=== PATIENT | female | born 1985 | race Caucasian/White ===

== ENCOUNTER 2022-02-22 11:29 | Outpatient (CLI) | payer OTHER, SELFPAY ==
[2022-02-22 11:53] LABS: Basophils Absolute Auto 0.1 K/mm3 (0.0-0.1); Basophils Percent Auto 0.9 % (0.2-1.2); Eosinophils Absolute Auto 0.4 K/mm3 (0-0.3); Eosinophils Percent Auto 3.2 % (0-4.4); Hematocrit 39.8 % (37.0-47.0); Hemoglobin 12.5 g/dL (12.0-15.0); Immature Granulocyte Absolute 0.08 K/mm3 (0.00-0.031); Immature Granulocyte Percent A 0.7 % (0-0.5); Lymphocytes Percent Auto 23.1 % (18.3-44.2); Mean Corpuscular HGB Conc 31.4 g/dl (32-36); Mean Corpuscular Hemoglobin 27.4 pg (26-34); Mean Corpuscular Volume 87.1 fl (80-100); Monocytes Absolute Auto 0.7 K/mm3 (0.1-0.6); Monocytes Percent Auto 6.6 % (2.6-8.5); Neutrophils Absolute Auto 7.1 K/mm3 (1.3-6.7); Neutrophils Percent Auto 65.5 % (45.5-73.1); Platelet Count Result 335 k/mm3 (150-375); Red Blood Count 4.57 M/mm3 (4.2-5.4); White Blood Count 10.8 K/mm3 (4.5-10.0)
[2022-02-22 12:05] LABS: Alanine Aminotransferase 58 U/L (4-35); Albumin Level 4.5 g/dL (3.5-5.1); Alkaline Phosphatase 75 U/L (38-126); Anion Gap 8 mmol/L (8-16); Aspartate Amino Transferase 65 U/L (14-36); Bilirubin,Total 0.7 mg/dL (0.2-1.3); Blood Urea Nitrogen 12 mg/dL (7-17); Calcium 9.2 mg/dL (8.4-10.2); Carbon Dioxide 29 mmol/L (22-30); Chloride 98 mmol/L (98-107); Cholesterol 254 mg/dL (0-200); Estimated Glomerular Filt Rate > 60; Glucose 107 mg/dL (65-110); HDL Direct 43 mg/dL; Magnesium 1.9 mg/dL (1.6-2.3); Potassium 3.9 mmol/L (3.4-5.0); Sodium 135 mmol/L (137-145); Triglycerides 251 mg/dL (<150)
[2022-02-22 12:09] LABS: Hemoglobin A1C 6.7 % (<5.7)
[2022-02-22 12:17] LABS: LDL Cholesterol Direct 157 mg/dL
== END 2022-02-22 11:30 | disposition home or self-care (01) ==
LOC: ANHLAB 11:38
PROVIDERS: PCP Physician Assistant; Visit Provider Physician Assistant
DX: M25.531 Pain in right wrist (principal); F33.0 Major depressive disorder, recurrent, mild; F41.9 Anxiety disorder, unspecified
CPT/HCPCS: 36415; 80053; 80061; 82607; 83036; 83735; 84439; 84443; 85025

== ENCOUNTER 2022-04-04 09:09 | Outpatient (CLI) | payer OTHER, SELFPAY ==
[2022-04-04 09:52] LABS: Alanine Aminotransferase 70 U/L (6-35); Albumin Level 4.7 g/dL (3.5-5.1); Alkaline Phosphatase 71 U/L (38-126); Anion Gap 7 mmol/L (8-16); Aspartate Amino Transferase 60 U/L (14-36); Bilirubin,Total 0.6 mg/dL (0.2-1.3); Blood Urea Nitrogen 12 mg/dL (7-17); Calcium 9.2 mg/dL (8.4-10.2); Carbon Dioxide 30 mmol/L (22-30); Chloride 100 mmol/L (98-107); Estimated Glomerular Filt Rate > 60; Glucose 136 mg/dL (65-110); Potassium 4.4 mmol/L (3.4-5.0); Sodium 137 mmol/L (137-145)
== END 2022-04-04 09:10 | disposition home or self-care (01) ==
LOC: ANHLAB 09:14
PROVIDERS: PCP Physician Assistant; Visit Provider Physician Assistant
DX: E11.9 Type 2 diabetes mellitus without complications (principal)
CPT/HCPCS: 36415; 80053

== ENCOUNTER 2022-05-03 10:21 | Outpatient (CLI) | payer OTHER, SELFPAY ==
[2022-05-03 13:02] LABS: Alanine Aminotransferase 75 U/L (6-35); Albumin Level 4.4 g/dL (3.5-5.1); Alkaline Phosphatase 66 U/L (38-126); Anion Gap 8 mmol/L (8-16); Aspartate Amino Transferase 64 U/L (14-36); Bilirubin,Total 0.6 mg/dL (0.2-1.3); Blood Urea Nitrogen 13 mg/dL (7-17); Calcium 9.1 mg/dL (8.4-10.2); Carbon Dioxide 30 mmol/L (22-30); Chloride 98 mmol/L (98-107); Estimated Glomerular Filt Rate > 60; Glucose 138 mg/dL (65-110); Potassium 4.4 mmol/L (3.4-5.0); Sodium 136 mmol/L (137-145)
[2022-05-03 14:32] LABS: Hemoglobin A1C 7.9 % (<5.7)
== END 2022-05-03 10:22 | disposition home or self-care (01) ==
LOC: ANHLAB 10:23
PROVIDERS: PCP Physician Assistant; Visit Provider Physician Assistant
DX: E11.69 Type 2 diabetes mellitus with other specified complication (principal); E78.5 Hyperlipidemia, unspecified; R79.89 Other specified abnormal findings of blood chemistry; E53.8 Deficiency of other specified B group vitamins
CPT/HCPCS: 36415; 80053; 82607; 83036

== ENCOUNTER 2022-05-23 07:54 | Outpatient (CLI) | payer OTHER, SELFPAY ==
--- NOTE | ~2022-05-23 | US_ITS ---
EXAMINATION: US right upper quadrant DATE: 05/23/2022 08:40 INDICATION: Abnormal liver function tests. TECHNIQUE: Multiple grayscale and Doppler ultrasound images of the abdomen were obtained. COMPARISON: None FINDINGS: The visualized portions of the head and body of the pancreas are normal. There is diffuse h epatic steatosis. There is normal flow in main portal vein. The gallbladder is normal in size and con tains gallstones. No gallbladder wall thickening or sonographic Engel sign. The common duct is ezra l and measures 6 mm. IMPRESSION: 1. Cholelithiasis. No evidence of acute cholecystitis. 2. Diffuse hepatic steatosis. Reviewed, dictated and finalized at location A.
== END 2022-05-23 07:55 | disposition home or self-care (01) ==
PROVIDERS: PCP Physician Assistant; Visit Provider Physician Assistant
DX: R79.89 Other specified abnormal findings of blood chemistry (principal); K80.20 Calculus of gallbladder without cholecystitis without obstruction; K76.0 Fatty (change of) liver, not elsewhere classified
CPT/HCPCS: 76705

== ENCOUNTER 2022-06-03 12:41 | Emergency (ER) | payer OTHER, SELFPAY ==
[2022-06-03 12:51] VITALS: BP 123/79; PULSE 111; RESP 18; TEMP 36.6; O2SAT 98
--- NOTE | 2022-06-03 13:06 | ED.UPPEXIN ---
HPI - Extremity Injury (Upper) General Chief Complaint: Extremity Injury, Upper Stated Complaint: lt wrist pain Time Seen by Provider: 06/03/22 12:57 Source: patient Mode of arrival: ambulatory Limitations: no limitations History of Present Illness HPI narrative: Patient presents today with a 3-week history of left wrist pain that has been worsening since onset. Denies any injury or trauma. Denies any numbness or tingling in the arm or hand. She currently rates her pain 2/10 that she describes as a constant ache, at rest. Pain increases with grasping or some movements. She has been taking Tylenol and ibuprofen with mild relief. Related Data Home Medications Medication Instructions Recorded Confirmed Unknown Iud 06/03/22 escitalopram oxalate 10 mg tablet 10 mg DAILY 06/03/22 06/03/22 levothyroxine 75 mcg tablet 75 mcg DAILY 06/03/22 06/03/22 (Euthyrox) lisinopril 20 1 tablet DAILY 06/03/22 06/03/22 mg-hydrochlorothiazide 25 mg tablet metformin 500 mg tablet,extended 500 mg PO DAILY 06/03/22 06/03/22 release 24 hr Allergies Allergy/AdvReac Type Severity Reaction Status Date / Time adhesive tape Allergy Unknown Verified 06/03/22 12:57 Review of Systems Review of Systems: CONSTITUTIONAL: Denies body aches, fever, chills, or sweats. EYES: Denies visual changes, redness, or discharge. ENT: Denies rhinorrhea, congestion, sore throat, or otalgia. CARDIOVASCULAR: Denies chest pain, palpitations, or edema. RESPIRATORY: Denies cough or dyspnea. GASTROINTESTINAL: Denies abdominal pain, nausea, vomiting, or diarrhea. GENITOURINARY: Denies dysuria or hematuria. SKIN: Denies rash, itching, or wounds. MUSCULOSKELETAL: Denies back pain, or myalgia.+ Left wrist pain NEUROLOGIC: Denies headache, numbness, tingling, or weakness. PSYCH: Denies depression or anxiety. [facility] Past Medical History Medical History (Updated 06/03/22 @ 13:11 by Daysi King, [employer], ) Diabetes Hypothyroidism Comments At time of signature, I have reviewed and agree with nursing past medical, surgical, social and family history unless otherwise noted. Please see nursing chart for further information. There is no relevant family history pertinent to the presenting complaint Exam Narrative: GENERAL: Well-appearing, well-nourished, and in no acute distress. HEAD: Normocephalic, atraumatic. EYES: EOMI. No redness or drainage. Conjunctivae normal. ENT: Mucous membranes pink and moist. NECK: Normal AROM. CHEST: No respiratory distress. EXTREMITIES: Left wrist: Soft tissue tenderness to the distal radius that extends slightly up the forearm No bony tenderness. No edema, ecchymosis, or erythema noted. Distal sensation intact. Capillary refill normal. Radial pulse normal. Full range of motion of the wrist and all fingers. Pain with full flexion and extension, full pronation and supination. 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 SKIN: Warm, dry, no rash. Capillary refill normal. Normal skin turgor. NEURO: No focal deficits. Alert and oriented x3. Gait steady. PSYCH: Normal affect. No signs of depression or anxiety. Course Course Level of Care: Express Care Visit Vital Signs Vital signs: Vital Signs Temperature 97.9 F 06/03/22 12:51 Pulse Rate 111 H 06/03/22 12:51 Respiratory Rate 18 06/03/22 12:51 Blood Pressure 123/79 06/03/22 12:51 Pulse Oximetry 98 06/03/22 12:51 Oxygen Delivery Room Air 06/03/22 12:51 Temperature 97.9 F 06/03/22 12:51 Pulse Rate 111 H 06/03/22 12:51 Respiratory Rate 18 06/03/22 12:51 Blood Pressure 123/79 06/03/22 12:51 Pulse Oximetry 98 06/03/22 12:51 Oxygen Delivery Room Air 06/03/22 12:51 Reviewed. Pt has been instructed to follow up with her PCP regarding her elevated blood pressure today. MDM - Extremity Injury (Upper) Differential Diagnosis Differential diagnosis: Likely sprain and strain of wrist and other (Tendinitis) Critical Care Time Critical Care Time Cri
== END 2022-06-03 13:14 | disposition home or self-care (01) ==
PROVIDERS: Emergency Provider Nurse Practitioner; PCP Physician Assistant
DX: M77.8 Other enthesopathies, not elsewhere classified (principal); E11.9 Type 2 diabetes mellitus without complications; E03.9 Hypothyroidism, unspecified
CPT/HCPCS: 99213; G0463

== ENCOUNTER 2022-07-12 11:04 | Outpatient (CLI) | payer OTHER, SELFPAY ==
[2022-07-12 11:48] LABS: Basophils Absolute Auto 0.1 K/mm3 (0.0-0.1); Basophils Percent Auto 0.6 % (0.2-1.2); Eosinophils Absolute Auto 0.3 K/mm3 (0-0.3); Eosinophils Percent Auto 2.3 % (0-4.4); Hematocrit 39.1 % (37.0-47.0); Hemoglobin 12.5 g/dL (12.0-15.0); Immature Granulocyte Absolute 0.07 K/mm3 (0.00-0.031); Immature Granulocyte Percent A 0.6 % (0-0.5); Lymphocytes Absolute Auto 2.97 K/mm3 (0.9-3.2); Lymphocytes Percent Auto 26.8 % (18.3-44.2); Mean Corpuscular Hemoglobin 27.7 pg (26-34); Mean Corpuscular Volume 86.5 fl (80-100); Mean Platelet Volume 10.5 fl (7.4-10.4); Monocytes Absolute Auto 0.7 K/mm3 (0.1-0.6); Monocytes Percent Auto 6.3 % (2.6-8.5); Neutrophils Percent Auto 63.4 % (45.5-73.1); Platelet Count Result 347 k/mm3 (150-375); Red Blood Count 4.52 M/mm3 (4.2-5.4); Red Cell Distribution Width 14.3 % (11.5-14.5); White Blood Count 11.1 K/mm3 (4.5-10.0)
[2022-07-12 11:59] LABS: Alanine Aminotransferase 80 U/L (6-35); Albumin Level 4.4 g/dL (3.5-5.1); Alkaline Phosphatase 76 U/L (38-126); Anion Gap 8 mmol/L (8-16); Aspartate Amino Transferase 77 U/L (14-36); Bilirubin,Total 0.7 mg/dL (0.2-1.3); Blood Urea Nitrogen 12 mg/dL (7-17); Calcium 9.6 mg/dL (8.4-10.2); Carbon Dioxide 31 mmol/L (22-30); Chloride 96 mmol/L (98-107); Cholesterol 237 mg/dL (0-200); Estimated Glomerular Filt Rate > 60; Glucose 174 mg/dL (65-110); HDL Direct 37 mg/dL; Magnesium 1.6 mg/dL (1.6-2.3); Potassium 4.2 mmol/L (3.4-5.0); Sodium 135 mmol/L (137-145); Triglycerides 246 mg/dL (<150)
[2022-07-12 12:10] LABS: LDL Cholesterol Direct 172 mg/dL
[2022-07-12 12:50] LABS: Free T4 Free Thyroxine 1.49 ng/mL (0.78-2.19)
[2022-07-12 13:02] LABS: Hemoglobin A1C 9.2 % (<5.7)
== END 2022-07-12 11:05 | disposition home or self-care (01) ==
PROVIDERS: PCP Physician Assistant; Visit Provider Physician Assistant
DX: E53.8 Deficiency of other specified B group vitamins (principal); R79.89 Other specified abnormal findings of blood chemistry; E11.69 Type 2 diabetes mellitus with other specified complication; E78.5 Hyperlipidemia, unspecified; F33.0 Major depressive disorder, recurrent, mild; F41.9 Anxiety disorder, unspecified; M25.531 Pain in right wrist; E03.9 Hypothyroidism, unspecified; E78.00 Pure hypercholesterolemia, unspecified
CPT/HCPCS: 36415; 80053; 80061; 82607; 83036; 83735; 84439; 84443; 85025

== ENCOUNTER 2023-05-16 01:38 | Day surgery (SDC) | payer OTHER, SELFPAY ==
[2023-05-12 14:45] VITALS: BMI 52.4
--- NOTE | 2023-05-12 15:01 | PC.NURSE ---
Report to the Outpatient Waiting Room, entrance under the green pavilion located off [facility], at time 6:00 on date 05/16/23. Planned Procedure Time: 7:30. Time changes happen often and if your time is changed the preop area will call you the afternoon before. - You and your visitor will be asked to self-screen and do not enter if you have any COVID symptoms. - A mask is optional within the hospital at this time. Patients may have clear liquids (water, carbonated beverages, clear teas, apple juice) until 3 hours prior to surgery with a maximum of 20 ounces. - No food from midnight until time of surgery Take the following medications with a SIP of water the morning of surgery: LEVOTHYROXINE DO NOT STOP ANY OF YOUR OTHER PRESCRIPTION MEDICATIONS PRIOR TO SURGERY ?EXCEPT THE FOLLOWING Medications to discontinue per physician: N/A Date to take last dose: N/A Please no make-up, nail liberian, hairspray, perfume, deodorant, or body powder the day of surgery. No jewelry (including any body piercings) or valuables the day of surgery, leave them at home. Please take a shower or bath the night before, or the morning of, surgery with an antibacterial soap. Wear comfortable, loose fitting clothing. - Jewelry must be removed prior to entering the operating room. Rings and piercings that are not removed may be cut off. - The hospital will not accept responsibility for valuables. - Please leave all valuables, including medications, at home the day of surgery. If you are going home after surgery, a licensed bull driver must drive you home. - NO public transportation without another adult if you receive anesthesia. - We recommend that an adult stay with you for 24 hours following discharge. - We also recommend that you do not drive, make important decision, drink alcoholic beverages, or take any drugs that were not prescribed by your health care provider for at least 24 hours after your discharge time. Follow any additional instructions given to you from your surgeon. If you or anyone in your household have experienced Covid symptoms in the past week, please notify your surgeon or the nurse liaison at the phone number below for possible testing. Telephone instructions given to PT - JAMEL LANGFORD and asked if any additional questions and then verbalized understanding. Patient advised to call surgeon office or pre surgery nurse liaison [phone] if any additional questions.
--- NOTE | 2023-05-13 16:18 | PM.IMHP ---
H&P: HPI History of Present Illness Date/Time: 05/13/23 16:18 Chief Complaint: pelvic pain Narrative: this is a 37-year-old 0 was admitted for diagnostic laparoscopy secondary to pelvic pain. She had an IUD in and ultrasound shows a to be in the correct position. She has had fair amount of severe and on and unrelenting pelvic pain. She is unable to have intercourse comfortably. She has had negative STD testing. She will undergo laparoscopy. Risks and benefits reviewed including not exclusive , aspiration bleeding,, perforation injury to bowel, bladder, ureters, or other internal organs with need for open laparotomy. She received the [employer] handout entitled laparoscopy. She had all questions answered. She asked to proceed. [facility] Past Medical History Medical History Achilles tendinitis of left lower extremity Anxiety Diabetes Exostosis of left posterior calcaneus Hypothyroidism Surgical History Surgical History H/O wrist surgery Right wrist 2019 History of dilatation and curettage History of hand surgery Left 2002ish Family History Family History Other Depression Diabetes mellitus FH: kidney cancer HLD (hyperlipidemia) Hypertension Social History Social History Smoking status: Never smoker Alcohol intake: current Alcohol use details: RARE Substance use: current Substance use type: marijuana Living arrangements: with family Occupation/Education: occupation 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[employer] Gender identity (if verbalized by the patient): Female Spiritual care concerns: No Meds Home Medications and Allergies Home Medications Medication Instructions Recorded Confirmed Type escitalopram oxalate 10 mg tablet 15 mg PO HS 06/03/22 05/12/23 History levothyroxine 75 mcg tablet 75 mcg PO DAILY 06/03/22 05/12/23 History (Euthyrox) metformin 500 mg tablet,extended 1,000 mg PO HS 06/03/22 05/12/23 History release 24 hr dapagliflozin propanediol 10 mg 10 mg PO HS 05/12/23 05/12/23 History tablet (Farxiga) diltiazem HCl 120 mg 120 mg PO HS 05/12/23 05/12/23 History capsule,extended release 24 hr (Cartia XT) ergocalciferol (vitamin D2) 1,250 1,250 mcg PO WEEKLY 05/12/23 05/12/23 History mcg (50,000 unit) capsule (Vitamin D2) glimepiride 2 mg tablet 2 mg PO HS 05/12/23 05/12/23 History lisinopril 10 mg tablet 10 mg PO HS 05/12/23 05/12/23 History rosuvastatin 5 mg tablet 5 mg PO HS 05/12/23 05/12/23 History semaglutide 3 mg tablet (Rybelsus) 3 mg PO DAILY 05/12/23 05/12/23 History Allergies Allergy/AdvReac Type Severity Reaction Status Date / Time adhesive tape Allergy Itching Verified 05/12/23 14:38 latex Allergy Rash Verified 05/12/23 14:38 Exam Const: General: cooperative, healthy appearing, comfortable and obese Orientation/consciousness: oriented to person, oriented to place and oriented to time HENMT: Head: normal to inspection Resp: Effort & Inspection: normal respiratory effort Cardio: Rate: regular rate Rhythm: regular rhythm Heart sounds: S1 normal heart sound present and S2 normal heart sound present GI: Inspection: normal to inspection Auscultation: normal bowel sounds : External Female Exam: normal external appearance Speculum Exam - Vagina: normal appearance of the vagina Speculum Exam - Cervix: normal appearance of the cervix Bimanual exam- vagina & uterus: Uterine tenderness Bimanual Exam- Adnexa, other: tender bilaterally Assessment and Plan Assessment and plan (1) Pelvic pain: Code(s): R10.2 - Pelvic and perineal pain Status: Acute Plan diagnostic laparoscopy. Risks benefits were
--- NOTE | 2023-05-15 08:38 | WPDANESEPPF ---
Anes - Initial Pre Proc Eval Procedure: Operation Date: 05/16/23 07:30 Proposed Procedures p Diagnostic Laparoscopy - Jose Martin Louis MD Date/Time: 05/15/23 08:38 Surgeon: Jose Martin Louis MD Pre Op Diagnosis: pelvic pain Patient Data Age: 37 Gender: F Height: 1.65 m Weight: 142.9 kg Allergies Allergy/AdvReac Type Severity Reaction Status Date / Time adhesive tape Allergy Itching Verified 05/12/23 14:38 latex Allergy Rash Verified 05/12/23 14:38 Home Medications Medication Instructions Recorded Confirmed Type escitalopram oxalate 10 mg tablet 15 mg PO HS 06/03/22 05/12/23 History levothyroxine 75 mcg tablet 75 mcg PO DAILY 06/03/22 05/12/23 History (Euthyrox) metformin 500 mg tablet,extended 1,000 mg PO HS 06/03/22 05/12/23 History release 24 hr dapagliflozin propanediol 10 mg 10 mg PO HS 05/12/23 05/12/23 History tablet (Farxiga) diltiazem HCl 120 mg 120 mg PO HS 05/12/23 05/12/23 History capsule,extended release 24 hr (Cartia XT) ergocalciferol (vitamin D2) 1,250 1,250 mcg PO WEEKLY 05/12/23 05/12/23 History mcg (50,000 unit) capsule (Vitamin D2) glimepiride 2 mg tablet 2 mg PO HS 05/12/23 05/12/23 History lisinopril 10 mg tablet 10 mg PO HS 05/12/23 05/12/23 History rosuvastatin 5 mg tablet 5 mg PO HS 05/12/23 05/12/23 History semaglutide 3 mg tablet (Rybelsus) 3 mg PO DAILY 05/12/23 05/12/23 History Patient hx anesthesia problems: none Family hx anesthesia problems: none Results Review: All pre-operative results and documents have been reviewed as part of the pre-operative evaluation. [facility] Past Medical History Medical History (Updated 05/15/23 @ 08:39 by Varun Damian DO) Achilles tendinitis of left lower extremity Anxiety Diabetes Exostosis of left posterior calcaneus Hyperlipidemia Hypertension Hypothyroidism Palpitations Surgical History Surgical History H/O wrist surgery Right wrist 2019 History of dilatation and curettage History of hand surgery Left 2002ish Family History Family History Other Depression Diabetes mellitus FH: kidney cancer HLD (hyperlipidemia) Hypertension Social History Social History Smoking status: Never smoker Alcohol intake: current Alcohol use details: RARE Substance use: current Substance use type: marijuana Living arrangements: with family Occupation/Education: occupation 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[employer] [facility] Gender identity (if verbalized by the patient): Female Spiritual care concerns: No Anes - Eval Final PreProcedure Day of Procedure 05/15/23 08:38 Patient weight: super morbidly obese Heart: regular rate and rhythm Lungs: clear to auscultation Airway: Mallampati scale class II Neurological: alert and oriented Last oral intake: >/= 8 hours ASA classification: III Emergent: no Anesthetic plan: proceed Anesthesia type and monitoring: general ETT and standard monitoring Results Review: All pre-operative results and documents have been reviewed as part of the pre-operative evaluation. Informed Consent: The patient's anesthetic plan and its attendant risks and benefits were discussed with the patient/family/POA. Questions were solicited and answers provided to the satisfaction of the patient/family/POA.
[2023-05-16] VITALS (8 sets, daily range): BP systolic 109–143; BP diastolic 70–84; PULSE 81–114; RESP 12–25; TEMP 36.1–36.8; O2SAT 95–100
[2023-05-16] MEDS: LACTATED RINGERS 1,000 ML 30 ML IV CONT ×2 (06:30→08:40)
[2023-05-16 06:51] LABS: Glucose Point of Care 122 mg/dl (65-105)
[2023-05-16 06:59] LABS: Anion Gap 11 mmol/L (8-16); Blood Urea Nitrogen 10 mg/dL (7-17); Calcium 9.2 mg/dL (8.4-10.2); Carbon Dioxide 25 mmol/L (22-30); Chloride 101 mmol/L (98-107); Estimated CRCL calculation 185 ml/min; Estimated Glomerular Filt Rate > 60; Glucose 124 mg/dL (65-110); Potassium 4.1 mmol/L (3.4-5.0); Sodium 137 mmol/L (137-145)
[2023-05-16] MEDS: ACETAMINOPHEN 500 MG TABLET 1000 MG PO (07:00)
--- NOTE | 2023-05-16 07:15 | WPDHPUPDATE1 ---
History and Physical Update Update Date/Time: 05/16/23 07:15 History and Physical has been reviewed, including an updated exam of the patient. There are NO changes in the patient's condition. Risks, benefits, and alternatives have been discussed and questions answered. Patient agrees to proceed with procedure.
[2023-05-16] MEDS: KETOROLAC 15 MG/ML VIAL (*BKC) IV PUSH (07:33)
--- NOTE | 2023-05-16 08:09 | W.PM.PROC2 ---
Procedure Note - Detailed Date of Procedure 05/16/23 Pre-op Diagnosis pelvic pain Post-op Diagnosis Other (Pelvic pain with bilateral ovarian cysts) Procedure Performed laparoscopic destruction cysts Surgeon Jose Martin Louis MD Anesthesia General Indications is a 37-year-old female severe pelvic pain Findings bilateral ovarian cysts consistent with polycystic ovaries. Small fibroid on posterior surface of. No evidence of endometriosis was seen tubes appeared within normal limits. The appendix appeared within normal limits was covered fatty tissue gallbladder liver edge appeared Description of Procedure patient was prepped and draped in the normal sterile fashion placed in the dorsal lithotomy position. Under excellent general trach anesthesia weighted speculum placed in posterior fornix vagina. Anterior lip of the cervix grasped with single-tooth tenaculum. Talbert's cannula inserted to the cervix, uterus then attached to the single-tooth and used for uterine manipulation later. The bladder emptied of 100cc clear urine. The weighted speculum was removed the gloves were changed. A supraumbilical incision made. Veress needle passed in the abdomen. Abdomen filled with CO2 gas to 15mm Hg. The 5mm trocar advanced under direct visualization with the Optiview and no injury seen. Patient placed in Trendelenburg and a suprapubic incision made. The 5mm trocar advanced under direct visualization assuring no injury. The above findings were seen. The ovarian cysts were then drained throughout each side. Photo documentation was undertaken the remainder the pelvis. The ovaries appeared normal size we were finished. The the lower site removed. The gas removed from the abdomen. The incisions closed with 4 Monocryl and glue. Instruments removed from the vagina. The patient went to recovery in satisfactory condition. All sponge, needle, instrument counts were correct. There were no immediate complications Estimated Blood Loss 5 Drains No Packing No Pathology None sent Complications No immediate complications Condition Stable Disposition PACU
[2023-05-16 08:31] LABS: Glucose Point of Care 147 mg/dl (65-105)
[2023-05-16] MEDS: fentaNYL CITRATE INJ (*CRX) 100 MCG/2 ML VIAL 25 MCG IV PUSH ×2 (08:38→08:41)
[2023-05-16] MEDS: MIDAZOLAM HCL (*CRX) 2 MG/2 ML VIAL IV PUSH (08:49)
== END 2023-05-16 10:20 | disposition home or self-care (01) ==
PROVIDERS: Anesthesiology; PCP Physician Assistant; Visit Provider Obstetrics & Gynecology
PROC: (CPT 49320; principal; 2023-05-16 07:30)
DX: N83.202 Unspecified ovarian cyst, left side (principal); N83.201 Unspecified ovarian cyst, right side; I10 Essential (primary) hypertension; E03.9 Hypothyroidism, unspecified; E78.5 Hyperlipidemia, unspecified; E11.9 Type 2 diabetes mellitus without complications; F41.9 Anxiety disorder, unspecified; E66.01 Morbid (severe) obesity due to excess calories; Z68.43 Body mass index [BMI] 50.0-59.9, adult; Z97.5 Presence of (intrauterine) contraceptive device; Z79.84 Long term (current) use of oral hypoglycemic drugs
CPT/HCPCS: 58662; 36415; 80048; 82948; 86850; 86900; 86901; A9270; J0330; J1100; J1885; J2250; J2405; J2704; J3010; J7120

== ENCOUNTER 2023-12-05 11:35 | Day surgery (SDC) | payer OTHER, SELFPAY ==
[2023-12-05 12:09] VITALS: BP 122/88; PULSE 95; RESP 18; TEMP 36.3; O2SAT 99
--- NOTE | 2023-12-05 13:06 | PC.NURSE ---
Pt states she is allergic to tagaderm in addition to adhesive tape, this RN used paper tape and coban to secure IV site.
[2023-12-05 13:10] LABS: Basophils Absolute Auto 0.1 K/mm3 (0.0-0.1); Basophils Percent Auto 0.9 % (0.2-1.2); Eosinophils Absolute Auto 0.2 K/mm3 (0-0.3); Eosinophils Percent Auto 2.4 % (0-4.4); Hematocrit 43.8 % (37.0-47.0); Hemoglobin 13.7 g/dL (12.0-15.0); Immature Granulocyte Absolute 0.02 K/mm3 (0.00-0.031); Immature Granulocyte Percent A 0.2 % (0-0.5); Lymphocytes Absolute Auto 2.21 K/mm3 (0.9-3.2); Lymphocytes Percent Auto 22.2 % (18.3-44.2); Mean Corpuscular HGB Conc 31.3 g/dl (32-36); Mean Corpuscular Hemoglobin 26.8 pg (26-34); Mean Corpuscular Volume 85.7 fl (80-100); Mean Platelet Volume 10.5 fl (7.4-10.4); Monocytes Absolute Auto 0.7 K/mm3 (0.1-0.6); Monocytes Percent Auto 6.5 % (2.6-8.5); Neutrophils Absolute Auto 6.8 K/mm3 (1.3-6.7); Neutrophils Percent Auto 67.8 % (45.5-73.1); Platelet Count Result 380 k/mm3 (150-375); Red Blood Count 5.11 M/mm3 (4.2-5.4); Red Cell Distribution Width 14.6 % (11.5-14.5)
[2023-12-05 13:22] LABS: Prothrombin Time 13.1 Seconds (11.1-14.7)
[2023-12-05 13:23] LABS: Alanine Aminotransferase 37 U/L (6-35); Albumin Level 4.5 g/dL (3.5-5.1); Alkaline Phosphatase 67 U/L (38-126); Anion Gap 10 mmol/L (8-16); Aspartate Amino Transferase 26 U/L (14-36); Bilirubin,Total 0.8 mg/dL (0.2-1.3); Blood Urea Nitrogen 8 mg/dL (7-17); Calcium 9.8 mg/dL (8.4-10.2); Carbon Dioxide 25 mmol/L (22-30); Chloride 102 mmol/L (98-107); Estimated CRCL calculation 156 ml/min; Estimated Glomerular Filt Rate > 60; Glucose 110 mg/dL (65-110); Potassium 4.3 mmol/L (3.4-5.0); Sodium 137 mmol/L (137-145)
--- NOTE | 2023-12-05 13:39 | ED.FEMALEGU ---
HPI - Female Genitourinary General Chief complaint: Vaginal Bleeding <Akilah Umana PA-C - Last Filed: 12/05/23 15:07> Stated complaint: vaginal bleeding and cramping <Akilah Umana PA-C - Last Filed: 12/05/23 15:07> Time Seen by Provider: 12/05/23 12:41 <Akilah Umana PA-C - Last Filed: 12/05/23 15:07> Source: patient <Akilah Umana PA-C - Last Filed: 12/05/23 15:07> Mode of arrival: ambulatory <RANDALL Jeff Last Filed: 12/05/23 15:07> Limitations: no limitations <RANDALL Jeff Last Filed: 12/05/23 15:07> History of Present Illness HPI Narrative: Patient is a 38-year-old female, with PMH of endometrial hyperplasia, who presents to the ED with report of vaginal bleeding. Patient reports she began having vaginal bleeding on Friday, bleeding has persisted since then and become heavy. She states she has been going through large pads and adult diapers, but bleeding through quickly. She saw Dr. Denia Louis in office yesterday and was rx'd an oral medication to help with bleeding. Bleeding remains heavy today. She called OBGYN again and was referred to the ED for further evaluation and to likely be taken for D&C today. Patient does admit to some nausea, lower abd cramping, lightheadedness. Denies syncope, vomiting, fevers. <Akilah Umana PA-C - Last Filed: 12/05/23 15:07> Related Data Home medications: Home Medications Medication Instructions Recorded Confirmed escitalopram oxalate 10 mg tablet 15 mg PO HS 06/03/22 05/16/23 levothyroxine 75 mcg tablet 75 mcg PO DAILY 06/03/22 05/16/23 (Euthyrox) metformin 500 mg tablet,extended 1,000 mg PO HS 06/03/22 05/16/23 release 24 hr dapagliflozin propanediol 10 mg 10 mg PO HS 05/12/23 05/16/23 tablet (Farxiga) diltiazem HCl 120 mg 120 mg PO HS 05/12/23 05/16/23 capsule,extended release 24 hr (Cartia XT) ergocalciferol (vitamin D2) 1,250 1,250 mcg PO WEEKLY 05/12/23 05/16/23 mcg (50,000 unit) capsule (Vitamin D2) glimepiride 2 mg tablet 2 mg PO HS 05/12/23 05/16/23 lisinopril 10 mg tablet 10 mg PO HS 05/12/23 05/16/23 rosuvastatin 5 mg tablet 5 mg PO HS 05/12/23 05/16/23 semaglutide 3 mg tablet (Rybelsus) 3 mg PO DAILY 05/12/23 05/16/23 <Akilah Umana PA-C - Last Filed: 12/05/23 15:07> Allergies/Adverse reactions: Allergies Allergy/AdvReac Type Severity Reaction Status Date / Time adhesive tape Allergy Itching Verified 12/05/23 15:19 latex Allergy Rash Verified 12/05/23 15:19 <Akilah Umana PA-C - Last Filed: 12/05/23 15:07> Review of Systems Review of Systems: CONSTITUTIONAL: Denies fever, chills, or sweats. CARDIOVASCULAR: Denies chest pain. RESPIRATORY: Denies dyspnea. GASTROINTESTINAL: See HPI GENITOURINARY: See HPI NEUROLOGIC: Reports lightheadedness. Denies headache, dizziness, numbness, or weakness. <RANDALL Jeff Last Filed: 12/05/23 15:07> All systems reviewed & are unremarkable except as noted in HPI and below <Akilah Umana PA-C - Last Filed: 12/05/23 15:07> PMF Past Medical History Medical History: Medical History Achilles tendinitis of left lower extremity Anxiety Diabetes Exostosis of left posterior calcaneus Hyperlipidemia Hypertension Hypothyroidism Palpitations <RANDALL Jeff Last Filed: 12/05/23 15:07> Surgical History Surgical History: Surgical History H/O wrist surgery Right wrist 2020 History of dilatation and curettage History of hand surgery Left 2002ish <Akilah Umana PA-C - Last Filed: 12/05/23 15:07> Family History Family History: Family History Other Depression Diabetes mellitus FH: kidney cancer HLD (hyperlipidemia) Hyperte
--- NOTE | 2023-12-05 14:18 | WPDANESEPPF ---
Anes - Initial Pre Proc Eval Procedure: Operation Date: 12/05/23 16:30 Proposed Procedures p Hysteroscopy Dilation and Curettage - Jose Martin Louis MD Date/Time: 12/05/23 14:18 Pre Op Diagnosis: vaginal bleeding and cramping Patient Data Age: 38 Gender: F Height: 1.65 m Weight: 142.5 kg Last Vital Signs Temp 36.3 C L 12/05/23 12:09 Pulse 95 12/05/23 12:09 Resp 18 12/05/23 12:09 BP 122/88 12/05/23 12:09 Pulse Ox 99 12/05/23 12:09 O2 Del Method Room Air 12/05/23 12:09 Allergies Allergy/AdvReac Type Severity Reaction Status Date / Time adhesive tape Allergy Itching Verified 12/05/23 15:19 latex Allergy Rash Verified 12/05/23 15:19 Home Medications Medication Instructions Recorded Confirmed Type escitalopram oxalate 10 mg tablet 15 mg PO HS 06/03/22 05/16/23 History levothyroxine 75 mcg tablet 75 mcg PO DAILY 06/03/22 05/16/23 History (Euthyrox) metformin 500 mg tablet,extended 1,000 mg PO HS 06/03/22 05/16/23 History release 24 hr dapagliflozin propanediol 10 mg 10 mg PO HS 05/12/23 05/16/23 History tablet (Farxiga) diltiazem HCl 120 mg 120 mg PO HS 05/12/23 05/16/23 History capsule,extended release 24 hr (Cartia XT) ergocalciferol (vitamin D2) 1,250 1,250 mcg PO WEEKLY 05/12/23 05/16/23 History mcg (50,000 unit) capsule (Vitamin D2) glimepiride 2 mg tablet 2 mg PO HS 05/12/23 05/16/23 History lisinopril 10 mg tablet 10 mg PO HS 05/12/23 05/16/23 History rosuvastatin 5 mg tablet 5 mg PO HS 05/12/23 05/16/23 History semaglutide 3 mg tablet (Rybelsus) 3 mg PO DAILY 05/12/23 05/16/23 History hydrocodone 5 mg-acetaminophen 325 1 tablet PO Q4H PRN pain #20 tabs 05/16/23 Rx mg tablet Laboratory Tests 12/05/23 12:57 WBC 10.0 K/mm3 (4.5-10.0) RBC 5.11 M/mm3 (4.2-5.4) Hgb 13.7 g/dL (12.0-15.0) Hct 43.8 % (37.0-47.0) MCV 85.7 fl (80-100) MCH 26.8 pg (26-34) MCHC 31.3 L g/dl (32-36) RDW 14.6 H % (11.5-14.5) Plt Count 380 H k/mm3 (150-375) MPV 10.5 H fl (7.4-10.4) Immature Gran % (Auto) 0.2 % (0-0.5) Neut % (Auto) 67.8 % (45.5-73.1) Lymph % (Auto) 22.2 % (18.3-44.2) [place] % (Auto) 6.5 % (2.6-8.5) Eos % (Auto) 2.4 % (0-4.4) Baso % (Auto) 0.9 % (0.2-1.2) Lymph # (Auto) 2.21 K/mm3 (0.9-3.2) [place] # (Auto) 0.7 H K/mm3 (0.1-0.6) Eos # (Auto) 0.2 K/mm3 (0-0.3) Baso # (Auto) 0.1 K/mm3 (0.0-0.1) Abs Immat Gran (auto) 0.02 K/mm3 (0.00-0.031) Absolute Neuts (auto) 6.8 H K/mm3 (1.3-6.7) Absolute Nucleated RBC 0.0 K/mm3 (0.0-0.012) Nucleated RBC % 0.0 % (0.0-0.2) PT 13.1 Seconds (11.1-14.7) INR 1.0 APTT 27.0 SECONDS (22.3-36.8) Sodium 137 mmol/L (137-145) Potassium 4.3 mmol/L (3.4-5.0) Chloride 102 mmol/L (98-107) Carbon Dioxide 25 mmol/L (22-30) Anion Gap 10 mmol/L (8-16) BUN 8 mg/dL (7-17) Creatinine 0.60 L mg/dL (0.7-1.0) Estim Creat Clear Calc 156 ml/min Estimated GFR > 60 (59 - ) Glucose 110 mg/dL (65-110) Calcium 9.8 mg/dL (8.4-10.2) Total Bilirubin 0.8 mg/dL (0.2-1.3) AST 26 U/L (14-36) ALT 37 H U/L (6-35) Alkaline Phosphatase 67 U/L (38-126) Total Protein 8.0 g/dL (6.3-8.2) Albumin 4.5 g/dL (3.5-5.1) Blood Type A Positive Antibody Screen Negative Patient hx anesthesia problems: none Family hx anesthesia problems: none Results Review: All pre-operative results and documents have been reviewed as part of the pre-operative evaluation. [facility] Past Medical History Medical History Achilles tendinitis of left lower extremity Anxiety Diabetes Exostosis of left posterior calcaneus Hyperlipidemia Hypertension Hypothyroidism Palpitations Surgical History Surgical History (Reviewed 12/05/23 @ 15:45 by Jose Martin Loza
[2023-12-05] MEDS: SODIUM CHLORIDE 0.9% IV 1,000 ML 999 ML IV CONT (14:32)
[2023-12-05] MEDS: TRANEXAMIC ACID 1,000MG/ISO100 1,000 MG/100 ML BAG 200 MG IVPB (14:34)
[2023-12-05] MEDS: LACTATED RINGERS 1,000 ML 30 ML IV CONT (15:00)
[2023-12-05 15:18] LABS: Beta HCG Quantitative < 2.39 mIU/ML
[2023-12-05 15:26] VITALS: BP 154/78; PULSE 80; RESP 20; TEMP 36.9; O2SAT 100
--- NOTE | 2023-12-05 15:44 | PM.IMHP ---
H&P: HPI History of Present Illness Date/Time: 12/05/23 15:44 Chief Complaint: heavy vaginal bleeding Narrative: 38-year-old the removal nulliparous patient who is here complaining of excessive heavy bleeding. She was placed on oral contraceptives test nonstop bleeding and is admitted for hysteroscopy [facility] Past Medical History Medical History Achilles tendinitis of left lower extremity Anxiety Diabetes Exostosis of left posterior calcaneus Hyperlipidemia Hypertension Hypothyroidism Palpitations Surgical History Surgical History H/O wrist surgery Right wrist 2019 History of dilatation and curettage History of hand surgery Left 2002ish Family History Family History Other Depression Diabetes mellitus FH: kidney cancer HLD (hyperlipidemia) Hypertension Social History Social History Smoking status: Never smoker Alcohol intake: current Alcohol use details: RARE Substance use: current Substance use type: marijuana Living arrangements: with family Occupation/Education: occupation 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[facility] Gender identity (if verbalized by the patient): Female Spiritual care concerns: No Meds Home Medications and Allergies Home Medications Medication Instructions Recorded Confirmed Type escitalopram oxalate 10 mg tablet 15 mg PO HS 06/03/22 05/16/23 History levothyroxine 75 mcg tablet 75 mcg PO DAILY 06/03/22 05/16/23 History (Euthyrox) metformin 500 mg tablet,extended 1,000 mg PO HS 06/03/22 05/16/23 History release 24 hr dapagliflozin propanediol 10 mg 10 mg PO HS 05/12/23 05/16/23 History tablet (Farxiga) diltiazem HCl 120 mg 120 mg PO HS 05/12/23 05/16/23 History capsule,extended release 24 hr (Cartia XT) ergocalciferol (vitamin D2) 1,250 1,250 mcg PO WEEKLY 05/12/23 05/16/23 History mcg (50,000 unit) capsule (Vitamin D2) glimepiride 2 mg tablet 2 mg PO HS 05/12/23 05/16/23 History lisinopril 10 mg tablet 10 mg PO HS 05/12/23 05/16/23 History rosuvastatin 5 mg tablet 5 mg PO HS 05/12/23 05/16/23 History semaglutide 3 mg tablet (Rybelsus) 3 mg PO DAILY 05/12/23 05/16/23 History hydrocodone 5 mg-acetaminophen 325 1 tablet PO Q4H PRN pain #20 tabs 05/16/23 Rx mg tablet Allergies Allergy/AdvReac Type Severity Reaction Status Date / Time adhesive tape Allergy Itching Verified 12/05/23 15:19 latex Allergy Rash Verified 12/05/23 15:19 Vital Signs Vital Signs - 24 hr 12/05/23 12:09 12/05/23 15:26 Temperature 97.3 F L 98.4 F Pulse Rate 95 80 Respiratory Rate 18 20 Blood Pressure 122/88 154/78 H Pulse Oximetry 99 100 Oxygen Delivery Room Air Room Air Exam Const: General: cooperative, healthy appearing and comfortable Nutritional Appearance: obese Orientation/consciousness: oriented to person, oriented to place and oriented to time Resp: Effort & Inspection: normal respiratory effort Cardio: Rate: regular rate Rhythm: regular rhythm Heart sounds: S1 normal heart sound present and S2 normal heart sound present GI: Inspection: normal to inspection : External Female Exam: normal external appearance Speculum Exam - Vagina: normal appearance of the vagina and vaginal bleeding Speculum Exam - Cervix: normal appearance of the cervix Bimanual exam- vagina & uterus: soft Bimanual Exam- Adnexa, other: normal adnexae H&P: Results Labs Labs: Short CBC 12/05/23 Range/Units 12:57 WBC 10.0 (4.5-10.0) K/mm3 Hgb 13.7 (12.0-15.0) g/dL Hct 43.8 (37.0-47.0) % Plt Count 380 H (150-375) k/mm3 BMP 12/05/23 12:57 Sodium 137 Potassium 4.3 Chloride 102 Carbon Dioxide 25 BUN 8 Creatinine 0.60 L Glucose 110 Calcium 9.8 [place]
--- NOTE | 2023-12-05 15:46 | WPDHPUPDATE1 ---
History and Physical Update Update Date/Time: 12/05/23 15:46 History and Physical has been reviewed, including an updated exam of the patient. There are NO changes in the patient's condition. Risks, benefits, and alternatives have been discussed and questions answered. Patient agrees to proceed with procedure.
[2023-12-05] MEDS: LIDOCAINE HCL 1% LOCAL INJ 20 ML VIAL 10 ML INFILTRATE (16:39)
[2023-12-05] MEDS: KETOROLAC 30 MG/ML VIAL (*BKC) IV PUSH (16:48)
--- NOTE | 2023-12-05 16:50 | P.OP_ITS ---
Procedure Note - Detailed Date of Procedure 12/05/23 Pre-op Diagnosis vaginal bleeding and cramping Post-op Diagnosis Same Procedure Performed Hysteroscopy / dilatation curettage Surgeon Jose Martin Louis MD Anesthesia MAC and Local Indications sub 38-year-old female who continues to have vaginal bleeding despite treatment with hormonal manipulation Findings uterus sounded 8cm. Thick irregular endometrial tissue was seen. Description of Procedure Patient was prepped draped in the normal sterile fashion placed in the dorsal lithotomy position. Under excellent IV sedation weighted speculum placed in po sterior fornix vagina. Anterior lip of the cervix grasped with a single-tooth tenaculum. 2.5cc 1% xylocaine anesthesia placed at 2, 4, 8, 10:00 a.m. of the cervix. Uterus sounded 8cm. Serial dilatation with fragmented dilators performed followed by passes the 5mm visualizing hysteroscope using normal saline as visualizing medium. Thick irregular endometrial tissue was seen but no evidence of polyp or other abnormalities. Uterus was scraped over the entire 360? until good grating sound was heard. Instruments were withdrawn patient went to recovery in satisfactory condition. All sponge, needle, instrument counts were correct. Were no acute complications Estimated Blood Loss 5 Drains No Packing No Pathology Yes Complications No immediate complications Condition Stable Disposition PACU
[2023-12-05 16:55] VITALS: BP 139/93; PULSE 100; RESP 14; O2SAT 95
[2023-12-05] MEDS: fentaNYL CITRATE INJ (*CRX) 100 MCG/2 ML VIAL 25 MCG IV PUSH ×4 (17:16→17:24)
[2023-12-05 17:25] VITALS: BP 150/78; PULSE 85; RESP 18; O2SAT 97
[2023-12-05 17:53] VITALS: BP 126/71; PULSE 82; RESP 17; O2SAT 96
[2023-12-05 17:54] LABS: Glucose Point of Care 95 mg/dl (65-105)
[2023-12-05] MEDS: oxyCODONE HCL (*CRX) 5 MG TAB IR PO (18:00)
[2023-12-05 18:28] VITALS: BP 129/65; PULSE 81; RESP 16; O2SAT 95
== END 2023-12-05 18:30 | disposition home or self-care (01) ==
LOC: ANHED 14:05 → ANHSURGERY 14:51
PROVIDERS: Emergency Medicine; Emergency Provider Physician Assistant; PCP Physician Assistant; Visit Provider Obstetrics & Gynecology
PROC: 0U5B8ZZ Destruction of Endometrium, Via Natural or Artificial Opening Endoscopic (ICD-10-PCS; CPT 58563; principal; 2023-12-05 16:30)
DX: N93.8 Other specified abnormal uterine and vaginal bleeding (principal); E11.9 Type 2 diabetes mellitus without complications; E78.5 Hyperlipidemia, unspecified; I10 Essential (primary) hypertension; F41.9 Anxiety disorder, unspecified; E03.9 Hypothyroidism, unspecified; Z79.84 Long term (current) use of oral hypoglycemic drugs; F12.90 Cannabis use, unspecified, uncomplicated; E66.01 Morbid (severe) obesity due to excess calories; Z68.43 Body mass index [BMI] 50.0-59.9, adult
CPT/HCPCS: 58558; 36415; 80053; 82948; 84702; 85025; 85610; 85730; 86850; 86900; 86901; 88305; 96374; 99285; A9270; J1885; J2250; J2405; J2704; J3010; J7030; J7120